=== PATIENT | female | born 2000 | race Caucasian/White ===

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

== ENCOUNTER → 2019-01-14 | Outpatient (REF) | payer BC, MEDICAID ==
[~2019-01-14] MED LIST changes: +OXCA1TAB; -OXCA30TA
== END ==
LOC: M LAB REF 18:24
PROVIDERS: ATTEND Specialist
DX: R50.9 Fever, unspecified (principal)

== ENCOUNTER → 2019-02-05 | Outpatient (REF) | payer BC, MEDICAID | LOC: M LAB REF 15:26 | PROVIDERS: ATTEND Specialist | DX: L02.212 Cutaneous abscess of back [any part, except buttock and flank] (principal); L02.31 Cutaneous abscess of buttock ==

== ENCOUNTER → 2019-07-28 | Outpatient (REF) | payer BC, MEDICAID | LOC: M SFHCPLAZ 15:53 | PROVIDERS: ATTEND Internal Medicine Infectious Disease | DX: L08.0 Pyoderma (principal) ==

== ENCOUNTER → 2019-08-25 | Outpatient (CLI) | payer BC, MEDICAID ==
--- NOTE | 2019-08-25 16:24 | REP ---
ULTRASOUND LEFT POSTERIOR FLANK SOFT-TISSUE: Real-time sonographic evaluation of left posterior flank soft-tissues was performed. There is a palpable lump at this location. Sonographically there is a somewhat heterogenous solid mass with internal blood flow. This measures 2.1 x 1.1 x 2.1 cm. This has increased in size since the prior exam of 07/26/2017. IMPRESSION: Solid mass at the site of the palpable lump in the left flank soft-tissue inferiorly, with internal blood flow with duplex Doppler evaluation. Recommend ultrasound guided biopsy to exclude neoplasm. Electronically Signed by Mendoza Junior MD 08/25/2019 05:00 P
== END ==
LOC: M RAD 14:51
PROVIDERS: ATTEND Specialist
DX: L72.3 Sebaceous cyst (principal)

== ENCOUNTER → 2019-09-21 | Outpatient (REF) | payer BC, MEDICAID ==
[2019-09-25 00:06] LABS: HSV-1 DNA Negative (Negative); HSV-2 DNA Negative (Negative)
== END ==
LOC: M SFHCPLAZ 16:43
PROVIDERS: ATTEND Internal Medicine Infectious Disease
DX: L08.0 Pyoderma (principal)

== ENCOUNTER → 2019-11-12 | Outpatient (REF) | payer BC, MEDICAID | LOC: M LAB REF 16:03 | PROVIDERS: ATTEND Pediatrics | DX: R05 Cough (principal) ==

== ENCOUNTER → 2019-11-23 | Outpatient (CLI) | payer BC, MEDICAID ==
[2019-11-23 13:05] LABS: BASO % 0.5 % (0.0-1.0); EOS # 0.1 10^3/uL (0.0-0.5); EOS % 1.6 % (0.0-3.0); HEMATOCRIT 36.9 % (36.0-47.0); HEMOGLOBIN 12.3 g/dl (12.0-15.5); LYMPH # 2.7 10^3/uL (1.5-5.0); LYMPH % 41.9 % (24.0-44.0); MEAN CORPUSCULAR HEMOGLOBIN 31.8 pg (27.0-33.0); MEAN CORPUSCULAR HGB CONC 33.3 g/dl (32.0-36.5); MEAN CORPUSCULAR VOLUME 95.3 fl (80.0-96.0); MONO # 0.5 10^3/uL (0.0-0.8); MONO % 7.2 % (0.0-5.0); NEUTROPHILS # 3.1 10^3/uL (1.5-8.5); NEUTROPHILS % 48.5 % (36.0-66.0); PLATELET COUNT, AUTOMATED 251 10^3/uL (150-450); RED BLOOD COUNT 3.87 10^6/uL (4.00-5.40); WHITE BLOOD COUNT 6.4 10^3/uL (4.0-10.0)
[2019-11-23 13:37] LABS: ALBUMIN 3.3 GM/DL (3.2-5.2); ALT/SGPT 32 U/L (12-78); BILIRUBIN,TOTAL 0.3 MG/DL (0.2-1.0); BLOOD UREA NITROGEN 9 MG/DL (7-18); CALCIUM LEVEL 9.1 MG/DL (8.5-10.1); CARBON DIOXIDE LEVEL 24 MEQ/L (21-32); CHLORIDE LEVEL 121 MEQ/L (98-107); CREATININE FOR GFR 0.29 MG/DL (0.55-1.30); FERRITIN 44 NG/ML (8-252); GLUCOSE, FASTING 89 MG/DL (70-100); IRON (FE) 61 UG/DL (50-170); PERCENT SATURATION 24.2 % (13.2-45.0); SODIUM LEVEL 151 MEQ/L (136-145); TOTAL IRON BINDING CAPACITY 252 UG/DL (250-450); TOTAL PROTEIN 6.3 GM/DL (6.4-8.2)
[2019-11-23 13:44] LABS: TOTAL 25(OH) VITAMIN D 28.9 NG/ML (30.0-100.0)
--- NOTE | 2019-11-23 21:37 | ECGEPIP ---
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
== END ==
LOC: M LAB 12:09
PROVIDERS: ATTEND Pediatrics
DX: R23.1 Pallor (principal); R00.1 Bradycardia, unspecified

== ENCOUNTER 2019-11-24 20:13 | Emergency (ER) | payer BC, MEDICAID ==
[2019-11-24 20:48] LABS: BASO % 0.3 % (0.0-1.0); EOS % 0.7 % (0.0-3.0); HEMATOCRIT 38.9 % (36.0-47.0); HEMOGLOBIN 12.8 g/dl (12.0-15.5); LYMPH # 1.7 10^3/uL (1.5-5.0); LYMPH % 28.6 % (24.0-44.0); MEAN CORPUSCULAR HEMOGLOBIN 31.4 pg (27.0-33.0); MEAN CORPUSCULAR HGB CONC 32.9 g/dl (32.0-36.5); MEAN CORPUSCULAR VOLUME 95.6 fl (80.0-96.0); MONO # 0.3 10^3/uL (0.0-0.8); NEUTROPHILS # 3.7 10^3/uL (1.5-8.5); NEUTROPHILS % 64.9 % (36.0-66.0); PLATELET COUNT, AUTOMATED 318 10^3/uL (150-450); RED BLOOD COUNT 4.07 10^6/uL (4.00-5.40); WHITE BLOOD COUNT 5.8 10^3/uL (4.0-10.0)
[2019-11-24 21:08] LABS: BLOOD UREA NITROGEN 8 MG/DL (7-18); CALCIUM LEVEL 9.5 MG/DL (8.5-10.1); CARBON DIOXIDE LEVEL 23 MEQ/L (21-32); CHLORIDE LEVEL 124 MEQ/L (98-107); CREATININE FOR GFR 0.36 MG/DL (0.55-1.30); GLUCOSE, FASTING 98 MG/DL (70-100); POTASSIUM SERUM 4.2 MEQ/L (3.5-5.1); SODIUM LEVEL 153 MEQ/L (136-145)
--- NOTE | 2019-11-24 23:55 | REPVR ---
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 Radiation optimization: All CT scans at this facility use at least one of these dose optimization techniques: automated exposure control; mA and/or kV adjustment per patient size (includes targeted exams where dose is matched to clinical indication); or iterative reconstruction. COMPARISON: CT Head without contrast 05/05/2018 1:47 PM FINDINGS: Severe motion degradation of the study. Brain: Stable appearance of left hemispheric volume loss. There is no evidence of intracranial hemorrhage. No abnormal extra-axial fluid collections are identified. Ventricles: Ex vacuo enlargement of the left lateral ventricle, with size and contour unchanged. Ventricular stranding or adhesion in the left occipital horn, with associated calcifications, appearance unchanged compared to prior study. Bones/joints: Previous left frontal craniostomy. No acute fracture. Sinuses: The visualized sinuses are unremarkable. Mastoid air cells: There is no mastoid effusion detected. IMPRESSION: 1. No acute intracranial pathology demonstrated by CT. 2. Chronic findings, as above. Electronically signed by: Nell Fish On 11/24/2019 23:55:07 PM
[2019-11-25 02:58] VITALS: BP 98/61
--- NOTE | 2019-11-26 06:43 | ECGEPIP ---
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
== END 2019-11-25 03:06 | disposition short-term general hospital (02) ==
LOC: M ED 20:13
DX: E87.0 Hyperosmolality and hypernatremia (principal); Q04.0 Congenital malformations of corpus callosum; Z79.899 Other long term (current) drug therapy

== ENCOUNTER → 2019-11-30 | Outpatient (REF) | payer BC, MEDICAID | LOC: M LABDRAW1 13:46 | PROVIDERS: ATTEND Psychiatry & Neurology Neurology | DX: R56.9 Unspecified convulsions (principal) ==

== ENCOUNTER → 2019-11-30 | Outpatient (REF) | payer BC, MEDICAID ==
[2019-11-30 15:48] LABS: BLOOD UREA NITROGEN 10 MG/DL (7-18); CALCIUM LEVEL 8.5 MG/DL (8.5-10.1); CARBON DIOXIDE LEVEL 23 MEQ/L (21-32); CHLORIDE LEVEL 107 MEQ/L (98-107); CREATININE FOR GFR 0.32 MG/DL (0.55-1.30); GLUCOSE, FASTING 84 MG/DL (70-100); SODIUM LEVEL 140 MEQ/L (136-145)
== END ==
LOC: M LABDRAW1 13:44
DX: E87.0 Hyperosmolality and hypernatremia (principal)

== ENCOUNTER → 2019-12-28 | Outpatient (REF) | payer BC, MEDICAID ==
[2019-12-28 16:21] LABS: BLOOD UREA NITROGEN 10 MG/DL (7-18); CALCIUM LEVEL 9.4 MG/DL (8.5-10.1); CARBON DIOXIDE LEVEL 25 MEQ/L (21-32); CHLORIDE LEVEL 108 MEQ/L (98-107); CREATININE FOR GFR 0.43 MG/DL (0.55-1.30); GLUCOSE, FASTING 82 MG/DL (70-100); POTASSIUM SERUM 4.3 MEQ/L (3.5-5.1); SODIUM LEVEL 139 MEQ/L (136-145)
== END ==
LOC: M LABDRAWC 15:52
PROVIDERS: ATTEND Pediatrics Pediatric Nephrology
DX: E87.1 Hypo-osmolality and hyponatremia (principal)

== ENCOUNTER → 2020-02-11 | Outpatient (REF) | payer BC, MEDICAID | LOC: M LABDRAWC 15:55 | PROVIDERS: ATTEND Pediatrics Pediatric Nephrology | DX: E87.0 Hyperosmolality and hypernatremia (principal) ==

== ENCOUNTER 2020-03-05 10:14 | Emergency (ER) | payer BC, MEDICAID ==
[~2020-03-05] VITALS: Ht 154.9 cm; Wt 43.2 kg
[2020-03-05] MEDS ORDERED: GLYC2TAB18 (10:27)
[2020-03-05] MEDS ORDERED: LEVE500T5 (10:27)
[2020-03-05] MEDS ORDERED: AMLO2.5T3 (10:27)
[2020-03-05] MEDS ORDERED: NS 500 ML IV ONE (11:15)
[2020-03-05 11:30] LABS: BASO # 0.1 10^3/uL (0.0-0.2); BASO % 0.8 % (0.0-1.0); EOS # 0.1 10^3/uL (0.0-0.5); EOS % 2.1 % (0.0-3.0); HEMATOCRIT 42.2 % (36.0-47.0); HEMOGLOBIN 14.3 g/dl (12.0-15.5); LYMPH # 2.4 10^3/uL (1.5-5.0); LYMPH % 38.2 % (24.0-44.0); MEAN CORPUSCULAR HEMOGLOBIN 30.8 pg (27.0-33.0); MEAN CORPUSCULAR HGB CONC 33.9 g/dl (32.0-36.5); MEAN CORPUSCULAR VOLUME 90.9 fl (80.0-96.0); MONO # 0.7 10^3/uL (0.0-0.8); MONO % 10.5 % (0.0-5.0); NEUTROPHILS # 3.1 10^3/uL (1.5-8.5); NEUTROPHILS % 48.2 % (36.0-66.0); PLATELET COUNT, AUTOMATED 217 10^3/uL (150-450); RED BLOOD COUNT 4.64 10^6/uL (4.00-5.40); WHITE BLOOD COUNT 6.3 10^3/uL (4.0-10.0)
[2020-03-05] MEDS ORDERED: ONDANSETRON 4MG/2ML VIAL IV ONE (11:45)
[2020-03-05] MEDS ORDERED: fentaNYL 100 MCG/2 ML INJECTION (J3010) IV ONE (11:45)
[2020-03-05 11:55] LABS: ALBUMIN 3.7 GM/DL (3.2-5.2); ALT/SGPT 35 U/L (12-78); BILIRUBIN,DIRECT < 0.1 MG/DL (0.0-0.2); BILIRUBIN,TOTAL 0.4 MG/DL (0.2-1.0); BLOOD UREA NITROGEN 7 MG/DL (7-18); CALCIUM LEVEL 9.1 MG/DL (8.5-10.1); CARBON DIOXIDE LEVEL 23 MEQ/L (21-32); CHLORIDE LEVEL 106 MEQ/L (98-107); CREATININE FOR GFR 0.24 MG/DL (0.55-1.30); GLUCOSE, FASTING 85 MG/DL (70-100); LIPASE 67 U/L (73-393); POTASSIUM SERUM 4.3 MEQ/L (3.5-5.1); SODIUM LEVEL 138 MEQ/L (136-145); TOTAL PROTEIN 6.7 GM/DL (6.4-8.2)
--- NOTE | 2020-03-05 12:36 | REP ---
CT brain: 03/05/2020. Indication: Altered mental status. Stroke. Technique: Axial unenhanced CT images of the brain were obtained from skull base to vertex with coronal reconstructions provided. Findings: There is no acute intracranial hemorrhage, acute cortical infarction or acute calvarial fracture. 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 There is no worsening mass effect. The visualized paranasal sinuses and mastoid air cells are essentially clear. Impression: No acute intracranial process. Stable left cerebral hemisphere cyst. Electronically Signed by Jayson Omalley DO 03/05/2020 12:28 P
[2020-03-05] MEDS ORDERED: ISOVUE-370 76% 100ML VIAL As Ordered ONE (12:50)
--- NOTE | 2020-03-05 13:44 | REP ---
CT abdomen/pelvis: 03/05/2020. Indication: Abdominal pain. Technique: Axial images of the abdomen were performed following administration of oral and IV contrast with sagittal and coronal reconstructions provided. Comparison: 01/11/2018. Findings: Moderately increased fecal material is noted within the sigmoid colon. Dilated loops of small and large bowel are present without free intraperitoneal air. Examination of the abdominal anatomy is suboptimal secondary to presence of Khan rods and associated streak artifact. No focal abnormalities of the liver, spleen or kidneys are detected. The visualized lungs are clear. No significant vascular abnormalities are detected. Percutaneous gastrostomy tube is noted. Endometrial fluid and calcifications are redemonstrated. There is distension of the urinary bladder. Impression: Likely constipation with mild to moderately dilated loops of small and large bowel more proximally to the sigmoid colon. Please correlate. Electronically Signed by Jayson Omalley DO 03/05/2020 01:36 P
[2020-03-05 14:47] VITALS: BP 96/64
--- NOTE | 2020-03-05 15:28 | REP ---
Single view chest: 03/05/2020. Indication: Altered mental status. Comparison: 01/14/2019. Findings: Poor inspiratory result is noted. Khan rods are present bilaterally. The visualized lungs are clear. There is no pleural effusion or pneumothorax. Tracheostomy tube is noted. No significant cardiomegaly is present. Impression: Clear lungs. Electronically Signed by Jayson Omalley DO 03/05/2020 03:19 P
== END 2020-03-05 14:48 | disposition home or self-care (01) ==
LOC: M ED 10:14
DX: K59.00 Constipation, unspecified (principal); I10 Essential (primary) hypertension; R56.9 Unspecified convulsions; Z79.899 Other long term (current) drug therapy
CPT/HCPCS: 70450; 71045; 74178; 80048; 80076; 81001; 83605; 83690; 85025; 87040; 87077; 96361; 96374; 96375; 99284; J2405; J3010; Q9967

== ENCOUNTER → 2020-07-08 | Outpatient (CLI) | payer BC, MEDICAID ==
[~2020-07-08] MED LIST changes: +AMLO2.5T3; +GLYC2TAB18; +LEVE500T5
[2020-07-08 14:41] LABS: ALBUMIN 3.6 GM/DL (3.2-5.2); ALT/SGPT 26 U/L (12-78); BILIRUBIN,TOTAL 0.4 MG/DL (0.2-1.0); BLOOD UREA NITROGEN 7 MG/DL (7-18); CALCIUM LEVEL 9.3 MG/DL (8.5-10.1); CARBON DIOXIDE LEVEL 22 MEQ/L (21-32); CHLORIDE LEVEL 107 MEQ/L (98-107); GLUCOSE, FASTING 82 MG/DL (70-100); POTASSIUM SERUM 4.4 MEQ/L (3.5-5.1); SODIUM LEVEL 139 MEQ/L (136-145); TOTAL PROTEIN 6.7 GM/DL (6.4-8.2)
== END ==
LOC: M LAB 13:47
PROVIDERS: ATTEND Specialist
DX: E87.0 Hyperosmolality and hypernatremia (principal)

== ENCOUNTER → 2021-01-02 | Outpatient (CLI) | payer SELFPAY | LOC: M LABSMTC 10:54 | PROVIDERS: ATTEND Pediatrics | DX: Z11.52 Encounter for screening for COVID-19 (principal) ==

== ENCOUNTER → 2021-03-13 | Outpatient (CLI) | payer BC, MEDICAID ==
[2021-03-13 18:05] LABS: BASO % 0.4 % (0.0-1.0); EOS # 0.1 10^3/uL (0.0-0.5); HEMATOCRIT 42.5 % (36.0-47.0); HEMOGLOBIN 14.1 g/dl (12.0-15.5); LYMPH # 1.9 10^3/uL (1.5-5.0); MEAN CORPUSCULAR HEMOGLOBIN 30.4 pg (27.0-33.0); MEAN CORPUSCULAR HGB CONC 33.2 g/dl (32.0-36.5); MEAN CORPUSCULAR VOLUME 91.6 fl (80.0-96.0); MONO % 12.5 % (2.0-8.0); NEUTROPHILS % 62.7 % (36.0-66.0); PLATELET COUNT, AUTOMATED 212 10^3/uL (150-450); RED BLOOD COUNT 4.64 10^6/uL (4.00-5.40)
[2021-03-13 18:16] LABS: ALBUMIN 3.5 GM/DL (3.2-5.2); ALT/SGPT 46 U/L (12-78); BILIRUBIN,TOTAL 0.4 MG/DL (0.2-1.0); BLOOD UREA NITROGEN 5 MG/DL (7-18); CARBON DIOXIDE LEVEL 24 MEQ/L (21-32); CHLORIDE LEVEL 106 MEQ/L (98-107); CREATININE FOR GFR 0.26 MG/DL (0.55-1.30); GLOMERULAR FILTRATION RATE > 60.0 (>60); GLUCOSE, FASTING 85 MG/DL (70-100); PHOSPHORUS LEVEL 3.8 MG/DL (2.5-4.9); POTASSIUM SERUM 3.9 MEQ/L (3.5-5.1); SODIUM LEVEL 139 MEQ/L (136-145); TOTAL PROTEIN 6.7 GM/DL (6.4-8.2)
[2021-03-13 18:26] LABS: ALBUMIN 3.4 GM/DL (3.2-5.2); ALT/SGPT 44 U/L (12-78); BILIRUBIN,TOTAL 0.4 MG/DL (0.2-1.0); BLOOD UREA NITROGEN 5 MG/DL (7-18); CALCIUM LEVEL 9.2 MG/DL (8.5-10.1); CARBON DIOXIDE LEVEL 24 MEQ/L (21-32); CHLORIDE LEVEL 105 MEQ/L (98-107); CREATININE FOR GFR 0.31 MG/DL (0.55-1.30); GLOMERULAR FILTRATION RATE > 60.0 (>60); GLUCOSE, FASTING 85 MG/DL (70-100); SODIUM LEVEL 138 MEQ/L (136-145); TOTAL PROTEIN 6.5 GM/DL (6.4-8.2)
== END ==
LOC: M PLALAB 14:54
PROVIDERS: ATTEND Psychiatry & Neurology Neurology
DX: E22.2 Syndrome of inappropriate secretion of antidiuretic hormone (principal); I10 Essential (primary) hypertension; R56.9 Unspecified convulsions; Z51.81 Encounter for therapeutic drug level monitoring; Z79.899 Other long term (current) drug therapy

== ENCOUNTER → 2021-03-13 | Outpatient (REF) | payer BC, MEDICAID | LOC: M LAB REF 10:17 | PROVIDERS: ATTEND Specialist | DX: J06.9 Acute upper respiratory infection, unspecified (principal) ==

== ENCOUNTER → 2022-04-30 | Outpatient (CLI) | payer BC, MEDICAID ==
[~2022-04-30] MED LIST changes: +ALBU2.5V10 INH; -ALBU83IN INH
== END ==
LOC: M LABSMTC 09:32
PROVIDERS: ATTEND Nurse Practitioner Family
DX: Z11.52 Encounter for screening for COVID-19 (principal); G93.0 Cerebral cysts

== ENCOUNTER → 2022-05-04 | Outpatient (CLI) | payer BC, MEDICAID ==
[2022-05-04 09:07] LABS: BASO % 0.5 % (0.0-1.0); EOS # 0.1 10^3/uL (0.0-0.5); EOS % 1.4 % (0.0-3.0); HEMATOCRIT 42.8 % (36.0-47.0); HEMOGLOBIN 14.3 g/dl (12.0-15.5); LYMPH % 46.7 % (24.0-44.0); MEAN CORPUSCULAR HEMOGLOBIN 30.4 pg (27.0-33.0); MEAN CORPUSCULAR HGB CONC 33.4 g/dl (32.0-36.5); MEAN CORPUSCULAR VOLUME 91.1 fl (80.0-96.0); MONO # 0.4 10^3/uL (0.0-0.8); MONO % 8.5 % (2.0-8.0); NEUTROPHILS # 1.9 10^3/uL (1.5-8.5); NEUTROPHILS % 42.7 % (36.0-66.0); WHITE BLOOD COUNT 4.4 10^3/uL (4.0-10.0)
[2022-05-04 10:02] LABS: ALBUMIN 3.3 GM/DL (3.2-5.2); ALT/SGPT 19 U/L (12-78); BILIRUBIN,TOTAL 0.3 MG/DL (0.2-1.0); BLOOD UREA NITROGEN 6 MG/DL (7-18); CALCIUM LEVEL 9.3 MG/DL (8.5-10.1); CARBON DIOXIDE LEVEL 22 MEQ/L (21-32); CHLORIDE LEVEL 105 MEQ/L (98-107); CHOLESTEROL LEVEL 168 MG/DL (<200); CREATININE FOR GFR 0.31 MG/DL (0.55-1.30); GLOMERULAR FILTRATION RATE > 60.0 (>60); GLUCOSE, FASTING 84 MG/DL (70-100); HDL CHOLESTEROL 70 MG/DL (>40); LDL CHOLESTEROL 82 MG/DL (<100); MAGNESIUM LEVEL 1.7 MG/DL (1.8-2.4); NON-HDL-C 98 MG/DL; PHOSPHORUS LEVEL 4.6 MG/DL (2.5-4.9); POTASSIUM SERUM 3.8 MEQ/L (3.5-5.1); SODIUM LEVEL 137 MEQ/L (136-145); TOTAL PROTEIN 6.4 GM/DL (6.4-8.2); TRIGLYCERIDES LEVEL 78 MG/DL (<150)
[2022-05-04 10:51] LABS: TOTAL 25(OH) VITAMIN D 32.7 NG/ML (30.0-100.0)
[2022-05-04 15:23] LABS: ACETONE/KETONE 19.07 MG/DL (<2.81)
== END ==
LOC: M LAB 08:15
PROVIDERS: ATTEND Psychiatry & Neurology Neurology
DX: G40.419 Other generalized epilepsy and epileptic syndromes, intractable, without status epilepticus (principal); Z78.9 Other specified health status

== ENCOUNTER → 2022-10-17 | Outpatient (CLI) | payer BC, MEDICAID ==
[2022-10-17 14:19] LABS: BASO % 0.9 % (0.0-1.0); EOS # 0.1 10^3/uL (0.0-0.5); EOS % 1.1 % (0.0-3.0); HEMOGLOBIN 13.9 g/dl (12.0-15.5); LYMPH # 2.1 10^3/uL (1.5-5.0); MEAN CORPUSCULAR HEMOGLOBIN 31.9 pg (27.0-33.0); MEAN CORPUSCULAR HGB CONC 33.9 g/dl (32.0-36.5); MONO # 0.4 10^3/uL (0.0-0.8); MONO % 8.4 % (2.0-8.0); NEUTROPHILS # 2.1 10^3/uL (1.5-8.5); NEUTROPHILS % 44.4 % (36.0-66.0); PLATELET COUNT, AUTOMATED 207 10^3/uL (150-450); RED BLOOD COUNT 4.36 10^6/uL (4.00-5.40); WHITE BLOOD COUNT 4.6 10^3/uL (4.0-10.0)
[2022-10-17 14:42] LABS: VALPROIC ACID (DEPAKOTE) 51.1 UG/ML (50.0-100.0)
[2022-10-17 14:44] LABS: ALBUMIN 3.3 G/DL (3.2-5.2); ALKALINE PHOSPHATASE 88 U/L (46-116); ALT/SGPT 16 U/L (7.0-40); AST/SGOT 12 U/L (<34); BILIRUBIN,TOTAL 0.2 MG/DL (0.3-1.2); BLOOD UREA NITROGEN 7 MG/DL (9-23); CALCIUM LEVEL 8.7 MG/DL (8.5-10.1); CARBON DIOXIDE LEVEL 22 MMOL/L (20-31); CHLORIDE LEVEL 104 MMOL/L (98-107); CREATININE FOR GFR 0.37 MG/DL (0.55-1.30); GLOMERULAR FILTRATION RATE > 60.0 (>60); GLUCOSE, FASTING 78 MG/DL (60-100); POTASSIUM SERUM 4.5 MMOL/L (3.5-5.1); SODIUM LEVEL 139 MMOL/L (136-145); TOTAL PROTEIN 6.2 G/DL (5.7-8.2)
== END ==
LOC: M LAB 13:30
PROVIDERS: ATTEND Psychiatry & Neurology Neurology
DX: G40.309 Generalized idiopathic epilepsy and epileptic syndromes, not intractable, without status epilepticus (principal)

== ENCOUNTER → 2023-03-25 | Outpatient (CLI) | payer BC, MEDICAID ==
[~2023-03-25] MED LIST changes: +SENN-111 PO; -SENN18TA PO
[2023-03-25 09:53] LABS: BASO % 0.7 % (0.0-1.0); EOS % 0.7 % (0.0-3.0); HEMATOCRIT 40.1 % (36.0-47.0); HEMOGLOBIN 13.8 g/dl (12.0-15.5); LYMPH # 2.4 10^3/uL (1.5-5.0); LYMPH % 44.9 % (24.0-44.0); MEAN CORPUSCULAR HEMOGLOBIN 31.9 pg (27.0-33.0); MEAN CORPUSCULAR HGB CONC 34.4 g/dl (32.0-36.5); MEAN CORPUSCULAR VOLUME 92.8 fl (80.0-96.0); MONO # 0.5 10^3/uL (0.0-0.8); MONO % 9.6 % (2.0-8.0); NEUTROPHILS # 2.4 10^3/uL (1.5-8.5); NEUTROPHILS % 44.1 % (36.0-66.0); PLATELET COUNT, AUTOMATED 162 10^3/uL (150-450); RED BLOOD COUNT 4.32 10^6/uL (4.00-5.40); WHITE BLOOD COUNT 5.4 10^3/uL (4.0-10.0)
[2023-03-25 09:59] LABS: ACETONE/KETONE 1.58 MMOL/L (0.02-0.27)
[2023-03-25 10:13] LABS: ALBUMIN 3.4 G/DL (3.2-5.2); ALKALINE PHOSPHATASE 81 U/L (46-116); ALT/SGPT 12 U/L (7.0-40); AST/SGOT < 8 U/L (<34); BILIRUBIN,TOTAL 0.5 MG/DL (0.3-1.2); BLOOD UREA NITROGEN < 5 MG/DL (9-23); CALCIUM LEVEL 10.1 MG/DL (8.5-10.1); CARBON DIOXIDE LEVEL 25 MMOL/L (20-31); CHLORIDE LEVEL 102 MMOL/L (98-107); CHOLESTEROL LEVEL 156 MG/DL (<200); CHOLESTEROL RISK RATIO 2.32 (<5); GLOMERULAR FILTRATION RATE > 60.0 (>60); GLUCOSE, FASTING 80 MG/DL (60-100); MAGNESIUM LEVEL 1.7 MG/DL (1.8-2.4); PHOSPHORUS LEVEL 4.5 MG/DL (2.5-4.9); POTASSIUM SERUM 3.9 MMOL/L (3.5-5.1); SODIUM LEVEL 136 MMOL/L (136-145); TOTAL 25(OH) VITAMIN D 34.5 NG/ML (20.0-100.0); TOTAL PROTEIN 6.4 G/DL (5.7-8.2); TRIGLYCERIDES LEVEL 85 MG/DL (<150)
== END ==
LOC: M LAB 08:26
PROVIDERS: ATTEND Psychiatry & Neurology Neurology
DX: Z78.9 Other specified health status (principal); G40.419 Other generalized epilepsy and epileptic syndromes, intractable, without status epilepticus

== ENCOUNTER 2023-11-12 10:50 | Inpatient (IN) | payer BC, MEDICAID ==
[~2023-11-12] VITALS: Ht 152.4 cm; Wt 40.8 kg
[~2023-11-12 10:50] MED LIST changes: -AMLO2.5T3; +AMLO2.5T3 GT; -GLYC2TAB18; +GLYC2TAB18 GT
[2023-11-12] MEDS: ACETAMINOPHEN 325MG/10.15ML UDC GT ONE ×2 (14:26→21:57)
[2023-11-12 14:48] LABS: BASO % 0.6 % (0.0-1.0); EOS # 0.1 10^3/uL (0.0-0.5); EOS % 0.7 % (0.0-3.0); HEMATOCRIT 43.8 % (36.0-47.0); HEMOGLOBIN 14.4 g/dl (12.0-15.5); LYMPH % 14.6 % (24.0-44.0); MEAN CORPUSCULAR HEMOGLOBIN 32.4 pg (27.0-33.0); MEAN CORPUSCULAR HGB CONC 32.9 g/dl (32.0-36.5); MEAN CORPUSCULAR VOLUME 98.4 fl (80.0-96.0); MONO # 1.3 10^3/uL (0.0-0.8); MONO % 18.4 % (2.0-8.0); NEUTROPHILS # 4.5 10^3/uL (1.5-8.5); NEUTROPHILS % 65.3 % (36.0-66.0); RED BLOOD COUNT 4.45 10^6/uL (4.00-5.40); WHITE BLOOD COUNT 6.9 10^3/uL (4.0-10.0)
[2023-11-12 15:18] LABS: ALBUMIN 2.8 G/DL (3.2-5.2); ALKALINE PHOSPHATASE 73 U/L (46-116); ALT/SGPT 50 U/L (7.0-40); AST/SGOT 34 U/L (<34); BILIRUBIN,DIRECT < 0.1 MG/DL (<0.4); BILIRUBIN,TOTAL 0.2 MG/DL (0.3-1.2); BLOOD UREA NITROGEN 9 MG/DL (9-23); CALCIUM LEVEL 8.9 MG/DL (8.5-10.1); CARBON DIOXIDE LEVEL 24 MMOL/L (20-31); CHLORIDE LEVEL 116 MMOL/L (98-107); CREATININE FOR GFR 0.35 MG/DL (0.55-1.30); GLOMERULAR FILTRATION RATE > 60.0 (>60); GLUCOSE, FASTING 102 MG/DL (60-100); POTASSIUM SERUM 4.4 MMOL/L (3.5-5.1); SODIUM LEVEL 149 MMOL/L (136-145); TOTAL PROTEIN 6.2 G/DL (5.7-8.2)
[2023-11-12 15:20] LABS: THYROID STIMULATING HORMONE 0.639 uIU/ML (0.55-4.78); THYROXINE (T4) 5.6 UG/DL (4.5-10.9)
[2023-11-12 15:25] LABS: PROCALCITONIN 0.07 ng/ml
[2023-11-12] MEDS ORDERED: SULBACTAM SOD IV ONE (16:35)
[2023-11-12] MEDS ORDERED: AMPICILLIN SOD IV ONE (16:35)
[2023-11-12] MEDS ORDERED: FLUID PLACE HOLDER IV ONE (16:35)
[2023-11-12] MEDS ORDERED: CLON1TAB8 GT (17:57)
[2023-11-12] MEDS ORDERED: DEXTROSE 50% 50ML SYRINGE IV PRN (18:00)
[2023-11-12] MEDS: INSULIN LISPRO (NovoLOG) PER UNIT SC SCH (18:00)
[2023-11-12] MEDS ORDERED: GLUCOSE 4GM CHEW TABLET PO PRN (18:00)
[2023-11-12] MEDS ORDERED: GLUCAGON INJ 1MG VIAL SC PRN (18:00)
[2023-11-12] MEDS ORDERED: LEVA1.25 INH (18:12)
[2023-11-12] MEDS ORDERED: LEVE750T5 GT (18:21)
[2023-11-12] MEDS ORDERED: BACL10TA2 GT (18:21)
[2023-11-12] MEDS ORDERED: SODI3NEB INH (18:21)
[2023-11-12] MEDS ORDERED: PULM1SOL INH (18:21)
[2023-11-12] MEDS ORDERED: DIVA500T94 GT (18:21)
[2023-11-12] MEDS: AMPICILLIN SOD/SULBACTAM SOD 3 GM in D5W MINI-BAG PLUS 100 ML IV ONE (18:23)
[2023-11-12] MEDS: LR 1,000 ML IV ONE ×2 (18:24→20:52)
[2023-11-12] MEDS ORDERED: HOME MED LIST COMPLETE! XX SCH (18:35)
[2023-11-12] MEDS: LEVALBUTEROL 1.25MG 0.5ML CONCENTRATE NEB NEB SCH (20:00)
[2023-11-12 20:35] VITALS: BP 120/74; TEMP 98.4; O2SAT 97
[2023-11-12 20:54] VITALS: TEMP 101.1
[2023-11-12] MEDS ORDERED: PILL CUTTER 1 EACH XX ONE (21:53)
[2023-11-12] MEDS: DIVALPROEX 500 MG TAB PO SCH (21:56)
[2023-11-12] MEDS: levETIRAcetam 250MG TABLET (KEPPRA) GT SCH (21:56)
[2023-11-12] MEDS: clonazePAM 1 MG TAB GT SCH (21:57)
[2023-11-12] MEDS: AZITHROMYCIN 250MG TABLET PEG SCH (22:00)
[2023-11-12] MEDS: VANCOMYCIN HCL 1,000 MG, VIAL MATE ADAPTER 1 EACH in D5W 250 ML IV ONE (22:52)
[2023-11-12] MEDS: D5W/0.45% SODIUM CHLORIDE 1,000 ML IV SCH (22:52)
[2023-11-12 23:21] VITALS: BP 106/60; TEMP 99.2; O2SAT 97
[2023-11-13] VITALS (23 sets, daily range): BP systolic 96–113; BP diastolic 60–76; TEMP 98.1–100.3; O2SAT 91–96
[2023-11-13] MEDS: PIPERACILLIN/TAZOBACTAM SOD 3.375 GM in D5W MINI-BAG PLUS 50 ML IV SCH (00:25)
[2023-11-13 06:35] LABS: HEMATOCRIT 42.7 % (36.0-47.0); HEMOGLOBIN 14.3 g/dl (12.0-15.5); MEAN CORPUSCULAR HEMOGLOBIN 32.4 pg (27.0-33.0); MEAN CORPUSCULAR HGB CONC 33.5 g/dl (32.0-36.5); MEAN CORPUSCULAR VOLUME 96.8 fl (80.0-96.0); PLATELET COUNT, AUTOMATED 139 10^3/uL (150-450); RED BLOOD COUNT 4.41 10^6/uL (4.00-5.40); WHITE BLOOD COUNT 7.3 10^3/uL (4.0-10.0)
[2023-11-13 07:11] LABS: BLOOD UREA NITROGEN 7 MG/DL (9-23); CALCIUM LEVEL 8.7 MG/DL (8.5-10.1); CARBON DIOXIDE LEVEL 29 MMOL/L (20-31); CHLORIDE LEVEL 108 MMOL/L (98-107); CREATININE FOR GFR 0.34 MG/DL (0.55-1.30); GLOMERULAR FILTRATION RATE > 60.0 (>60); GLUCOSE, FASTING 84 MG/DL (60-100); POTASSIUM SERUM 3.4 MMOL/L (3.5-5.1); SODIUM LEVEL 142 MMOL/L (136-145)
[2023-11-13 07:52] LABS: VANCOMYCIN RANDOM 9.2 UG/ML
[2023-11-13] MEDS: SODIUM CHLORIDE HYPERTONIC 3% 4ML NEB SOL INH SCH (08:00)
[2023-11-13] MEDS: VANCOMYCIN HCL 750 MG, VIAL MATE ADAPTER 1 EACH in D5W 250 ML IV SCH (08:41)
[2023-11-13] MEDS: levETIRAcetam 250MG TABLET (KEPPRA) GT SCH (08:41)
[2023-11-13] MEDS: clonazePAM 1 MG TAB GT SCH (08:42)
[2023-11-13] MEDS: HEPARIN SOD (PORCINE) 5000UNITS/ML 1ML VIAL/SYRINGE SC SCH (08:42)
[2023-11-13] MEDS: POTASSIUM CHLORIDE 10% LIQ 20MEQ/15ML UDC GT ONE (08:45)
[2023-11-13] MEDS ORDERED: CLON1TAB17 GT (08:53)
[2023-11-13] MEDS ORDERED: LEVE750T5 GT (08:53)
[2023-11-13] MEDS ORDERED: KETOPOW GT (09:31)
[2023-11-13] MEDS ORDERED: MIDA5SPR NARES (09:31)
[2023-11-13] MEDS ORDERED: DIVA500T94 GT (09:31)
[2023-11-13] MEDS ORDERED: VIMP200T GT (09:31)
[2023-11-13] MEDS ORDERED: LEVA0.636 INH (09:31)
[2023-11-13] MEDS: BACLOFEN 10 MG TAB GT SCH (11:22)
[2023-11-13] MEDS: GLYCOPYRROLATE 2 MG GT SCH (11:23)
[2023-11-13] MEDS: SENOKOT S TAB GT SCH (11:23)
[2023-11-13] MEDS: LACOSAMIDE 10MG/ML 20ML VIAL (VIMPAT) IV SCH (11:24)
[2023-11-13] MEDS ORDERED: ACETAMINOPHEN *IV* 500 MG in IV 1 EA IV ONE (14:00)
[2023-11-13] MEDS: VALPROIC ACID 500MG/10ML SOL ORAL SYRINGE GT SCH (14:17)
[2023-11-13] MEDS: DORNASE INHALATION SOLN 1MG/ML 2.5 ML AMP INH SCH (14:21)
[2023-11-13] MEDS: ACETAMINOPHEN *IV* 500 MG in IV 1 EA IV ONE (14:47)
[2023-11-13] MEDS ORDERED: ACETAMINOPHEN 325MG/10.15ML UDC GT PRN (20:00)
[2023-11-13] MEDS ORDERED: ACETAMINOPHEN TAB 650MG DOSE (2X325MG) PO PRN (20:00)
[2023-11-13] MEDS: LEVALBUTEROL 1.25MG 0.5ML CONCENTRATE NEB NEB SCH (20:44)
[2023-11-14] VITALS (15 sets, daily range): BP systolic 101–127; BP diastolic 61–97; TEMP 96.3–98.7; O2SAT 91–100
[2023-11-14 06:06] LABS: BASO % 0.3 % (0.0-1.0); EOS # 0.1 10^3/uL (0.0-0.5); EOS % 1.9 % (0.0-3.0); HEMATOCRIT 40.8 % (36.0-47.0); HEMOGLOBIN 13.8 g/dl (12.0-15.5); LYMPH # 3.3 10^3/uL (1.5-5.0); LYMPH % 56.8 % (24.0-44.0); MEAN CORPUSCULAR HEMOGLOBIN 31.9 pg (27.0-33.0); MEAN CORPUSCULAR HGB CONC 33.8 g/dl (32.0-36.5); MEAN CORPUSCULAR VOLUME 94.2 fl (80.0-96.0); MONO # 0.6 10^3/uL (0.0-0.8); NEUTROPHILS # 1.7 10^3/uL (1.5-8.5); NEUTROPHILS % 29.7 % (36.0-66.0); PLATELET COUNT, AUTOMATED 153 10^3/uL (150-450); RED BLOOD COUNT 4.33 10^6/uL (4.00-5.40); WHITE BLOOD COUNT 5.7 10^3/uL (4.0-10.0)
[2023-11-14 06:49] LABS: BLOOD UREA NITROGEN < 5 MG/DL (9-23); CALCIUM LEVEL 8.9 MG/DL (8.5-10.1); CARBON DIOXIDE LEVEL 28 MMOL/L (20-31); CHLORIDE LEVEL 108 MMOL/L (98-107); GLOMERULAR FILTRATION RATE > 60.0 (>60); GLUCOSE, FASTING 87 MG/DL (60-100); MAGNESIUM LEVEL 1.9 MG/DL (1.8-2.4); SODIUM LEVEL 142 MMOL/L (136-145)
[2023-11-14] MEDS: NYSTATIN 100,000 UNITS/GM TOPICAL PWD 15GM TOP SCH (11:58)
[2023-11-14] MEDS: LACTOBACILLUS ACIDOPHILUS CAP (BACID) PEG SCH (17:56)
[2023-11-15] VITALS (31 sets, daily range): BP systolic 98–134; BP diastolic 54–78; TEMP 96.6–97.6; O2SAT 90–98
[2023-11-15 08:36] LABS: BASO % 0.4 % (0.0-1.0); EOS # 0.1 10^3/uL (0.0-0.5); EOS % 1.4 % (0.0-3.0); HEMATOCRIT 36.9 % (36.0-47.0); HEMOGLOBIN 12.6 g/dl (12.0-15.5); LYMPH # 3.1 10^3/uL (1.5-5.0); LYMPH % 61.2 % (24.0-44.0); MEAN CORPUSCULAR HEMOGLOBIN 32.5 pg (27.0-33.0); MEAN CORPUSCULAR HGB CONC 34.1 g/dl (32.0-36.5); MEAN CORPUSCULAR VOLUME 95.1 fl (80.0-96.0); MONO # 0.5 10^3/uL (0.0-0.8); MONO % 9.5 % (2.0-8.0); NEUTROPHILS # 1.4 10^3/uL (1.5-8.5); NEUTROPHILS % 27.3 % (36.0-66.0); PLATELET COUNT, AUTOMATED 150 10^3/uL (150-450); RED BLOOD COUNT 3.88 10^6/uL (4.00-5.40); WHITE BLOOD COUNT 5.1 10^3/uL (4.0-10.0)
[2023-11-15 09:04] LABS: BLOOD UREA NITROGEN < 5 MG/DL (9-23); CALCIUM LEVEL 8.9 MG/DL (8.5-10.1); CARBON DIOXIDE LEVEL 28 MMOL/L (20-31); CHLORIDE LEVEL 109 MMOL/L (98-107); CREATININE FOR GFR 0.38 MG/DL (0.55-1.30); GLOMERULAR FILTRATION RATE > 60.0 (>60); GLUCOSE, FASTING 110 MG/DL (60-100); POTASSIUM SERUM 4.1 MMOL/L (3.5-5.1); SODIUM LEVEL 142 MMOL/L (136-145)
[2023-11-15] MEDS: NS 1,000 ML IV SCH (09:54)
[2023-11-15] MEDS: LevoFLOXacin IV 750 MG in IV 1 EA IV SCH (13:49)
[2023-11-15] MEDS: MIRALAX *UNIT DOSE* 17GM PACKET PEG SCH (21:14)
[2023-11-16] VITALS (10 sets, daily range): BP systolic 100–133; BP diastolic 63–90; TEMP 97.3–97.5; O2SAT 96–100
[2023-11-16] MEDS: LevoFLOXacin 750 MG TABLET PEG SCH (05:32)
[2023-11-16 05:47] LABS: BASO % 0.3 % (0.0-1.0); EOS # 0.1 10^3/uL (0.0-0.5); EOS % 0.9 % (0.0-3.0); HEMATOCRIT 39.7 % (36.0-47.0); HEMOGLOBIN 13.6 g/dl (12.0-15.5); LYMPH % 68.8 % (24.0-44.0); MEAN CORPUSCULAR HEMOGLOBIN 32.6 pg (27.0-33.0); MEAN CORPUSCULAR HGB CONC 34.3 g/dl (32.0-36.5); MEAN CORPUSCULAR VOLUME 95.2 fl (80.0-96.0); MONO # 0.5 10^3/uL (0.0-0.8); MONO % 7.7 % (2.0-8.0); NEUTROPHILS # 1.3 10^3/uL (1.5-8.5); PLATELET COUNT, AUTOMATED 183 10^3/uL (150-450); RED BLOOD COUNT 4.17 10^6/uL (4.00-5.40); WHITE BLOOD COUNT 5.9 10^3/uL (4.0-10.0)
[2023-11-16 05:57] LABS: BLOOD UREA NITROGEN < 5 MG/DL (9-23); CALCIUM LEVEL 9.7 MG/DL (8.5-10.1); CARBON DIOXIDE LEVEL 28 MMOL/L (20-31); CHLORIDE LEVEL 105 MMOL/L (98-107); CREATININE FOR GFR 0.34 MG/DL (0.55-1.30); GLOMERULAR FILTRATION RATE > 60.0 (>60); GLUCOSE, FASTING 89 MG/DL (60-100); POTASSIUM SERUM 4.1 MMOL/L (3.5-5.1); SODIUM LEVEL 141 MMOL/L (136-145)
[2023-11-16] MEDS ORDERED: LORazepam 2 MG/ML 1ML VIAL IM STA (08:46)
[2023-11-16] MEDS ORDERED: LEVO1TAB40 PEG (08:48)
[2023-11-16] MEDS: LORazepam 2 MG/ML 1ML VIAL IV STA ×2 (09:10→09:38)
[2023-11-16] MEDS ORDERED: NYST10006 TOP (11:12)
== END 2023-11-16 12:56 | disposition home or self-care (01) | DRG 720 ==
LOC: M ED 10:50 → M ED INP 17:53 → M PCU 20:30
PROVIDERS: ADMIT Internal Medicine; ATTEND Internal Medicine
DX: A41.9 Sepsis, unspecified organism (principal); Q04.0 Congenital malformations of corpus callosum; J15.69 Pneumonia due to other Gram-negative bacteria; Z93.0 Tracheostomy status; E79.8 Other disorders of purine and pyrimidine metabolism; E87.0 Hyperosmolality and hypernatremia; Z93.1 Gastrostomy status; R47.01 Aphasia; G40.909 Epilepsy, unspecified, not intractable, without status epilepticus; I10 Essential (primary) hypertension; Z79.899 Other long term (current) drug therapy

== ENCOUNTER → 2024-02-19 | Outpatient (CLI) | payer BC, MEDICAID ==
[~2024-02-19] MED LIST changes: +BACL10TA2 GT; +CLON1TAB17 GT; +CLON1TAB8 GT; +DIVA500T94 GT; +KETOPOW GT; +LEVA0.636 INH; +LEVA1.25 INH; +LEVE750T5 GT; +LEVO1TAB40 PEG; +MIDA5SPR NARES; +NYST10006 TOP; +PULM1SOL INH; +SODI3NEB INH; +VIMP200T GT
[2024-02-19 11:09] LABS: BASO % 0.6 % (0.0-1.0); EOS # 0.1 10^3/uL (0.0-0.5); EOS % 0.9 % (0.0-3.0); HEMATOCRIT 41.7 % (36.0-47.0); HEMOGLOBIN 14.3 g/dl (12.0-15.5); LYMPH # 2.5 10^3/uL (1.5-5.0); LYMPH % 37.5 % (24.0-44.0); MEAN CORPUSCULAR HEMOGLOBIN 32.5 pg (27.0-33.0); MEAN CORPUSCULAR HGB CONC 34.3 g/dl (32.0-36.5); MEAN CORPUSCULAR VOLUME 94.8 fl (80.0-96.0); MONO # 0.7 10^3/uL (0.0-0.8); MONO % 10.1 % (2.0-8.0); NEUTROPHILS # 3.3 10^3/uL (1.5-8.5); NEUTROPHILS % 50.7 % (36.0-66.0); PLATELET COUNT, AUTOMATED 166 10^3/uL (150-450); WHITE BLOOD COUNT 6.5 10^3/uL (4.0-10.0)
[2024-02-19 14:01] LABS: ALBUMIN 3.4 G/DL (3.2-5.2); ALKALINE PHOSPHATASE 75 U/L (46-116); ALT/SGPT 17 U/L (7.0-40); AST/SGOT < 8 U/L (<34); BILIRUBIN,TOTAL 0.4 MG/DL (0.3-1.2); BLOOD UREA NITROGEN 8 MG/DL (9-23); CALCIUM LEVEL 9.7 MG/DL (8.5-10.1); CARBON DIOXIDE LEVEL 23 MMOL/L (20-31); CHLORIDE LEVEL 110 MMOL/L (98-107); CHOLESTEROL LEVEL 159 MG/DL (<200); CHOLESTEROL RISK RATIO 2.42 (<5); CREATININE FOR GFR 0.32 MG/DL (0.55-1.30); GLOMERULAR FILTRATION RATE > 60.0 (>60); GLUCOSE, FASTING 80 MG/DL (60-100); HDL CHOLESTEROL 65.7 MG/DL (>40); LDL CHOLESTEROL 74.9 MG/DL (<100); MAGNESIUM LEVEL 1.7 MG/DL (1.8-2.4); NON-HDL-C 93.3 MG/DL; PHOSPHORUS LEVEL 4.8 MG/DL (2.5-4.9); POTASSIUM SERUM 3.8 MMOL/L (3.5-5.1); SODIUM LEVEL 142 MMOL/L (136-145); TOTAL PROTEIN 6.2 G/DL (5.7-8.2); TRIGLYCERIDES LEVEL 92 MG/DL (<150)
[2024-02-19 14:03] LABS: TOTAL 25(OH) VITAMIN D 38.1 NG/ML (20.0-100.0)
== END ==
LOC: M LAB 09:33
PROVIDERS: ATTEND Psychiatry & Neurology Neurology
DX: G40.419 Other generalized epilepsy and epileptic syndromes, intractable, without status epilepticus (principal); E55.9 Vitamin D deficiency, unspecified; Z78.9 Other specified health status

== ENCOUNTER → 2024-11-26 | Outpatient (REF) | payer BC, MEDICAID ==
[~2024-11-26] MED LIST changes: -SENN-111 PO; +SENN-165 PO
== END ==
LOC: M SFHCCLAY 12:06
PROVIDERS: ATTEND Nurse Practitioner Family
DX: R50.9 Fever, unspecified (principal)

== ENCOUNTER → 2025-03-24 | Outpatient (CLI) | payer BC, MEDICAID ==
[~2025-03-24] MED LIST changes: +DIVA-41 GT; -DIVA500T94 GT
[2025-03-27 17:48] LABS: VALPROIC ACID TOTAL 85.6 mg/L (50.0-100.0)
[2025-03-27 20:41] LABS: LEVETIRACETAM (KEPPRA) 33.7 mcg/mL (6.0-46.0)
== END ==
LOC: M LAB 12:40
PROVIDERS: ATTEND Psychiatry & Neurology Neurology
DX: G40.419 Other generalized epilepsy and epileptic syndromes, intractable, without status epilepticus (principal); Z78.9 Other specified health status

== ENCOUNTER → 2025-03-24 | Outpatient (CLI) | payer BC, MEDICAID ==
[2025-03-24 13:43] LABS: BASO # 0.0 10^3/uL (0.0-0.2); BASO % 0.4 % (0.0-1.0); EOS # 0.1 10^3/uL (0.0-0.5); EOS % 0.9 % (0.0-3.0); LYMPH # 3.2 10^3/uL (1.5-5.0); LYMPH % 48.3 % (24.0-44.0); MONO # 0.7 10^3/uL (0.0-0.8); MONO % 10.8 % (2.0-8.0); NEUTROPHILS # 2.6 10^3/uL (1.5-8.5); NEUTROPHILS % 39.5 % (36.0-66.0); PLATELET COUNT, AUTOMATED 145 10^3/uL (150-450)
[2025-03-24 14:11] LABS: VALPROIC ACID (DEPAKOTE) 75.0 UG/ML (50.0-100.0)
[2025-03-24 14:12] LABS: ALT/SGPT 17 U/L (7.0-40); AST/SGOT < 8 U/L (<34); CALCIUM LEVEL 8.4 MG/DL (8.5-10.1); CARBON DIOXIDE LEVEL 22 MMOL/L (20-31); CHLORIDE LEVEL 102 MMOL/L (98-107); CREATININE FOR GFR 0.30 MG/DL (0.55-1.30); GLOMERULAR FILTRATION RATE > 90.0 (>60); POTASSIUM SERUM 4.2 MMOL/L (3.5-5.1); SODIUM LEVEL 139 MMOL/L (136-145)
[2025-03-24 14:16] LABS: VITAMIN B12 LEVEL 1029 PG/ML (211-911)
[2025-03-24 14:18] LABS: TOTAL 25(OH) VITAMIN D 30.2 NG/ML (20.0-100.0)
[2025-03-27 20:29] LABS: LEVETIRACETAM (KEPPRA) 33.8 mcg/mL (6.0-46.0)
== END ==
LOC: M LAB 12:44
PROVIDERS: ATTEND Psychiatry & Neurology Neurology
DX: R56.9 Unspecified convulsions (principal)